=== PATIENT | male | born 1975 | race Caucasian/White ===

== ENCOUNTER 2018-07-01 11:43 | Outpatient (CLI) | payer OTHER, SELFPAY ==
[2018-07-01 13:24] LABS: Absolute Basophil Count 0.01 k/cumm (0.0-0.2); Absolute Eosinophil Count 0.04 k/cumm (0.0-0.7); Absolute Lymphocyte Count 1.56 k/cumm (1.2-3.4); Absolute Monocyte Count 0.38 k/cumm (0.11-0.7); Basophils % 0.2; Eosinophils % 0.7; HCT 47.3 % (40.0-50.0); HGB 16.2 g/dL (13.5-17.5); Lymphocytes % 28.9; Mean Corp. HGB Concentration 34.2 g/dL (32.0-36.0); Mean Corpuscular Hemoglobin 29.2 pg (27.0-33.0); Mean Corpuscular Volume 85.4 fL (80-95); Mean Platelet Volume 9.9 fL (8.0-11.0); Monocytes % 7.1; Neutrophils % 63.1; Platelet Count 246 x1000/uL (130-400); RBC 5.54 m/cumm (4.50-6.00); RBC Distribution Width 13.1 % (11.8-14.1); White Blood Cell Count 5.39 k/cumm (4.4-10.8)
[2018-07-01 13:38] LABS: ALT 32 U/L (12-78); AST 14 U/L (15-37); Albumin 4.1 g/dL (3.4-5.0); Alkaline Phosphatase 52 U/L (46-116); Anion Gap 5.6 mmol/L (3-11); BUN 20 mg/dL (7-18); Bilirubin, Total 0.5 mg/dL (0.2-1.0); CO2 28.4 mmol/L (21.0-32.0); CREATININE 1.03 mg/dL (0.70-1.30); Calcium 9.3 mg/dL (8.5-10.1); Chloride 102 mmol/L (98-107); Cholesterol 228 mg/dL (50-200); Glucose 87 mg/dL (70-100); HDL Cholesterol 60 mg/dL (40-60); LDL CHOLESTEROL 143 mg/dL (<100); Potassium 4.6 mmol/L (3.5-5.1); Sodium 136 mmol/L (136-145); Triglyceride 149 mg/dL (30-150)
== END 2018-07-01 12:03 ==
PROVIDERS: PCP Family Medicine; Visit Provider Family Medicine
DX: Z00.00 Encounter for general adult medical examination without abnormal findings (principal); K21.9 Gastro-esophageal reflux disease without esophagitis; Z80.9 Family history of malignant neoplasm, unspecified
CPT/HCPCS: 36415; 80053; 80061; 83721; 85025

== ENCOUNTER 2018-10-21 06:01 | Day surgery (SDC) | payer OTHER, SELFPAY ==
[2018-10-21 06:25] VITALS: BP 116/73; PULSE 72; RESP 16; TEMP 35.1; O2SAT 97
[2018-10-21] MEDS: Lactated Ringers 1,000 ML 80 ML IV (06:43)
--- NOTE | 2018-10-21 07:32 | STOM_PTH ---
PATIENT: Miguelito Dietrich LOC: [facility] U#:[id number] AGE/SX: 43/M ROOM: RE10/21/[address]: Mili Lemos : 1975 BED: DIS: 10/21/2018 SPEC #: [id number] RECD: 10/21/18 12:32 STATUS: CITLALI RE #: [id number] MIRA: 10/21/18 07:[address]: Mili Lemos DEPT: Surgical Specimen RECD BY: [place] ENTERED: 10/21/18 12:40 SP TYPE: STOMACH OTHR DR: Gregg Valencia MD Tissues: 1 - BIOPSY BOWEL 2 - STOMACH BIOPSY 3 - STOMACH BIOPSY 4 - ESOPHAGUS BIOPSY 5 - ESOPHAGUS BIOPSY Procedures: GROSS AND MICRO LEVEL 4 Comments: [id number]
--- NOTE | 2018-10-21 07:42 | ENDO_ITS ---
Date of service: 10/21/18 Time of Service: 07:40 Endoscopy Report DATE OF PROCEDURE: 10/21/18 PRE-OP DIAGNOSIS: Medication refractorty gerd POST-OP DIAGNOSIS: other (mild gastritis/esophagitis ) PROCEDURE: egd w/ Bx SURGEON: Mili Lemos ANESTHESIA: GETA ESTIMATED BLOOD LOSS: 2 PATHOLOGY: other COMPLICATIONS: None DISPOSITION: same day PROCEDURE DESCRIPTION: After informed consent was obtained the patient was take to the procedure room and placed in a supine position. Monitors were applied and a time out was done. The patients name, date of , procedure type, allergies to medications and metal in their body was reviewed. A bite block was placed and the patient was sedated. Once sedated and comfortable the gastroscope was advanced through the oropharynx which was grossly normal into the esophagus. The proximal and mid-esophagus were nl. In the distal esophagus there was mild esophagitis noted. The scope was advanced into the stomach and through the pylorus into the 3rd portion of the duodenum. The duodenum was noted to be nl. Biopsies were done . The scope was retracted back into the stomach and biopsies were done to rule out H. pylori. There were no ulcers. There is some mild gastritis in striped fashion in the antrum. The scope was retroflexed. The cardia and fundus were noted to be normal. There no a hiatal hernia noted. The scope was retracted back into the esophagus and biopsies were done of the GE junction to rule out Patino's. The Z line was regular. The GE junction was at 38 cm. The scope was removed and the patient was woken up and taken back to [facility] in stable condition. Follow up: prn see d/c instruction
--- NOTE | 2018-10-21 07:42 | W.PM.DSUDISC ---
Discharge Plan Disposition Patient Disposition: HOME Condition: Good Discharge Details Reason For Visit: EGD Attending Provider: Mili Lemos Primary Care Provider: Gregg Valencia Home Meds and New Rx's Prescriptions: New Dexilant 60 mg capsule,biphase delayed releas 60 mg PO DAILY Qty: 30 RF: 11 sucralfate [Carafate] 1 gram tablet 1 gm PO QACHS Qty: 30 RF: 5 Discontinued esomeprazole magnesium [Nexium] 40 mg capsule,delayed release(DR/EC) 40 mg PO DAILY Qty: 30 RF: 5 Discharge Instructions Additional Instructions: Findings:mild esophagitis/gastritis change Rx to Dexilant and add in carfate for breakthrough s/s. Continue with lifestyle modifications: no alcohol, tobacco products, Aspirin or NSAID's (ibuprofen, Motrin, Naprosyn, aleve, etc), soda pop/any carbonated beverages, caffeine (including tea & chocolate), and acidic foods, (tomatoes, citrus, onions, peppermints) spicy or fried/fatty foods. Do not lie down for 30 minutes after eating, and do not eat 2 hours prior to bedtime. Avoid wearing tight fitting clothing/ belts Follow up: will send a ltter w/ Bx results in 2-3 wks. if Dexilant isn't helping- call office Please call if you develop: fevers >101.5 Nausea or Vomiting Abdominal pain that is not transient DAY SURGERY UNIT POST COLONOSCOPY INSTRUCTIONS 1. Because there will be medication in your system for the next 24 hours, you may feel a little sleepy. Your coordination will be affected. Therefore: a. Do not drive or operate dangerous equipment for 24 hours. b. Do not drink alcohol beverages for 24 hours (not even beer). c. Plan to go home and rest for the day. 2. Generally there are no restrictions on your activity after a day or so has gone by, but you may feel a bit fatigued for a few days. 3 After you arrive home you may have a light meal and return to a normal diet as you can tolerate it without feeling sick to your stomach. 4. After surgery, you may feel pain or discomfort. This should be only transient, but if it persists please contact your doctor. 5. If there are any questions regarding the findings of your procedure, please feel free to contact your doctor. 6. If you are unable to contact your doctor with a problem, contact the hospital at [phone]. 7. Continue all your regular medications unless directed otherwise. I understand the above instructions and have no questions. Signature of Patient or Responsible Adult Escort Date/Time Name of Responsible Adult Escort Signature of Nurse Date/Time Stand Alone Forms: DSU Post BETTE Hdz, Anil Gamble (DSU) Activity:: no heavy lifting or strenous activity today Diet:: small light meals x 24 hrs Discharge Orders Discharge Orders: Discharge Order (Routine); Ordered 10/21/18 Ordered By: Mili Lemos Discharge Data Discharge Date/Time-TO BE ENTERED AT DEPARTURE: 10/21/18 09:09 Discharge Comment: DC'D HOME WITH SISTERPARAM. DS: Diagnosis Discharge Diagnosis (1) GERD (gastroesophageal reflux disease): Status: Chronic
[2018-10-21 08:45] VITALS: BP 116/78; PULSE 64; RESP 18; TEMP 35.4; O2SAT 100
== END 2018-10-21 09:09 | disposition home or self-care (01) ==
PROVIDERS: PCP Family Medicine; Visit Provider Surgery
PROC: 0DJ68ZZ Inspection of Stomach, Via Natural or Artificial Opening Endoscopic (ICD-10-PCS; CPT 43235; principal; 2018-10-21 07:30)
DX: K21.0 Gastro-esophageal reflux disease with esophagitis (principal); K29.60 Other gastritis without bleeding; K29.80 Duodenitis without bleeding
CPT/HCPCS: 43239; 88305

== ENCOUNTER 2019-07-20 11:38 | Outpatient (CLI) | payer BC, SELFPAY ==
[2019-07-20 13:09] LABS: Abs Immature Grans 0.01 k/cumm (0.0-0.09); Absolute Basophil Count 0.02 k/cumm (0.0-0.2); Absolute Eosinophil Count 0.03 k/cumm (0.0-0.7); Absolute Lymphocyte Count 1.62 k/cumm (1.2-3.4); Absolute Monocyte Count 0.42 k/cumm (0.11-0.7); Absolute Neutrophil Count 3.42 k/cumm (1.2-6.7); Basophils % 0.4; Eosinophils % 0.5; HCT 46.5 % (40.0-50.0); HGB 15.7 g/dL (13.5-17.5); Immature Grans % 0.2 %; Lymphocytes % 29.3; Mean Corp. HGB Concentration 33.8 g/dL (32.0-36.0); Mean Corpuscular Hemoglobin 29.5 pg (27.0-33.0); Mean Corpuscular Volume 87.2 fL (80-95); Mean Platelet Volume 9.6 fL (8.0-11.0); Monocytes % 7.6; Platelet Count 271 x1000/uL (130-400); RBC 5.33 m/cumm (4.50-6.00); RBC Distribution Width 13.7 % (11.8-14.1); White Blood Cell Count 5.52 k/cumm (4.4-10.8)
[2019-07-20 13:43] LABS: ALT 40 U/L (16-63); AST 22 U/L (15-37); Albumin 4.1 g/dL (3.4-5.0); Alkaline Phosphatase 50 U/L (46-116); Anion Gap 9.9 mmol/L (3-11); BUN 20 mg/dL (7-18); Bilirubin, Total 0.6 mg/dL (0.2-1.0); CO2 29.1 mmol/L (21.0-32.0); CREATININE 1.01 mg/dL (0.70-1.30); Calcium 9.1 mg/dL (8.5-10.1); Calculated LDL 153 mg/dL (<100); Chloride 103 mmol/L (98-107); Cholesterol 256 mg/dL (<200); Glucose 95 mg/dL (74-106); HDL Cholesterol 73 mg/dL (40-60); Potassium 4.6 mmol/L (3.5-5.1); Sodium 142 mmol/L (136-145); Total Protein 6.8 g/dL (6.4-8.2); Triglyceride 152 mg/dL (<150)
[2019-07-21 10:29] LABS: PSA, Screening 1.2 ng/mL (0.0-2.5)
== END 2019-07-20 11:58 ==
PROVIDERS: PCP Family Medicine; Visit Provider Family Medicine
DX: Z00.00 Encounter for general adult medical examination without abnormal findings (principal); Z13.220 Encounter for screening for lipoid disorders; Z12.5 Encounter for screening for malignant neoplasm of prostate; Z80.42 Family history of malignant neoplasm of prostate
CPT/HCPCS: 36415; 80053; 80061; 84153; 85025

== ENCOUNTER 2020-03-11 02:21 | Outpatient (CLI) | payer BC, SELFPAY ==
[2020-03-14 09:30] LABS: Patient Race White; SARS-CoV-2 RNA Undetected (Undetected); SARS-CoV-2 Specimen Source Nasopharynx
== END 2020-03-11 02:41 ==
PROVIDERS: PCP Family Medicine; Visit Provider Family Medicine
DX: Z11.59 Encounter for screening for other viral diseases (principal)
CPT/HCPCS: U0003

== ENCOUNTER 2020-09-12 03:22 | Outpatient (CLI) | payer BC, SELFPAY ==
[2020-09-13 14:16] LABS: COVID-19 RT-PCR UVMMC Result Negative (Negative)
== END 2020-09-12 03:23 | disposition home or self-care (01) ==
LOC: LBO 03:22
PROVIDERS: PCP Family Medicine; Visit Provider Nurse Practitioner
DX: Z20.822 Contact with and (suspected) exposure to COVID-19 (principal)
CPT/HCPCS: U0003

== ENCOUNTER 2023-05-08 10:20 | Outpatient (REF) | payer BC, SELFPAY ==
[2023-05-08 21:42] LABS: ALT 43 U/L (16-63); AST 29 U/L (15-37); Albumin 4.1 g/dL (3.4-5.0); Alkaline Phosphatase 64 U/L (46-116); Anion Gap 12.1 mmol/L (3-11); BUN 18 mg/dL (7-18); Bilirubin, Total 0.7 mg/dL (0.2-1.0); CO2 24.9 mmol/L (21.0-32.0); Calcium 9.3 mg/dL (8.5-10.1); Chloride 106 mmol/L (98-107); Estimated GFR 93.42 (mL/min/1.73m2); Glucose 127 mg/dL (74-106); NT-proBNP 227 pg/mL (<300); Sodium 143 mmol/L (136-145); Total Protein 7.1 g/dL (6.4-8.2); Uric Acid 6.3 mg/dL (3.5-7.2)
== END 2023-05-20 10:18 | disposition home or self-care (01) ==
LOC: LBN 10:20
PROVIDERS: PCP Family Medicine; Visit Provider Nurse Practitioner Family
DX: M25.571 Pain in right ankle and joints of right foot (principal)
CPT/HCPCS: 80053; 83880; 84550

== ENCOUNTER → 2023-05-08 14:50 | Outpatient (CLI) | payer BC, SELFPAY ==
--- NOTE | 2023-05-08 13:45 | DI.RAD_ITS ---
Exam(s) XR CHEST 2V PA LATERAL EXAM: XR CHEST 2V PA LATERAL CLINICAL HISTORY: cough, edema, hx cardiac murmur, Z86.79. TECHNIQUE: 2D digital imaging was performed. COMPARISON: No exams were available for comparison FINDINGS: 2 views: Heart size is normal. There is prominence of the left pulmonary artery segment. Also slight promine nce of the right pulmonary artery segment. No confluent lung infiltrates. No pleural effusions. No pneumothorax. No pulmonary edema. No fractures. IMPRESSION: Bilateral hilar findings as above. Prominence of the pulmonary artery segments. There are no prior studies for comparison in our PACS. If clinically indicated follow-up CT scan can be performed. DATA REPOSITORY: RADIATION DOSE DELIVERED:
== END ==
PROVIDERS: PCP Family Medicine; Visit Provider Nurse Practitioner Family
DX: Z86.79 Personal history of other diseases of the circulatory system (principal); R59.0 Localized enlarged lymph nodes; R05.9 Cough, unspecified
CPT/HCPCS: 71046

== ENCOUNTER → 2023-06-04 00:42 | Outpatient (CLI) | payer BC, SELFPAY ==
--- NOTE | 2023-06-04 06:45 | DI.US_ITS ---
APPROVED REPORT EXAM: Comprehensive 2D, Doppler, and color-flow Echocardiogram Patient Location: Out-Patient Global Risk Management Director: Manny Santiago RDCS (AE) Other Information Study Quality: Good Conclusion 1. Right atrium and ventricle are moderately dilated, left atrium mildly dilated, LV normal size. 2. PFO(versus ASD) with left to right shunting by color doppler. 3. Normal RV systolic function 4. Mild pulmonary hypertension 5. Normal LV systolic function. 6. Anatomically normal valves. Moderate MR, mild to moderate TR. 7. No pericardial effusion.i Wall motion Left Ventricle Left ventricular cavity is small. The left ventricular systolic function is normal. The left ventricu lar ejection fraction is within the normal range. There is normal left ventricular wall thickness. Fl attened septum consistent with right ventricular volume overload. Regional wall motion is normal. The re is no ventricular septal defect visualized. LVEF is 65%. Right Ventricle Right ventricle is moderately dilated. Right ventricular systolic function is grossly normal. The RVS P is 38.4 mmHg. Atria Left atrium is mildly dilated. Right atrium is moderately dilated. Possible PFO is noted. Doppler sug gests left to right interatrial shunt. Aortic Valve The aortic valve is normal in structure. Aortic valve is trileaflet. There is no aortic valvular sten osis. No aortic regurgitation is present. Mitral Valve The mitral valve is normal in structure. No evidence of mitral valve stenosis. Moderate mitral regurg itation. Tricuspid Valve The tricuspid valve is normal in structure. There is no tricuspid valve stenosis. Mild to moderate tr icuspid regurgitation. Pulmonic Valve The pulmonary valve is normal in structure. There is no pulmonic valvular stenosis. Trace pulmonic re gurgitation. Great Vessels The aortic root is normal in size. The ascending aorta is normal in size. Aortic arch is not well vis ualized. IVC is normal in size and collapses >50% with inspiration. Pericardium There is no pericardial effusion. 2D Dimensions IVSD d PLAX 0.74 cm M: 0.6-1.2 Ao Root d 2.62 cm M: 3.1 - 3.7 LVPW d PLAX 0.74 cm M: 0.6 - 1.2 Ao Asc Diam d 2.92 cm M: 2.6 - 3.4 LVID d PLAX 3.95 cm M: 4.2 - 5.8 LVDs 2.56 cm M: 2.5 - 4.0 LV EF Teichholz 65.1 % FS 35.13 % LV EDV (Teich) 67.8 mL LV ESV (Teich) 23.7 mL Stroke Vol Index (Teich) 23.46 M-Mode TAPSE 2.39 cm (M/F) >1.7 Auto EF LV EDV A4C 72.7 mL LV EDV A2C 120.2 mL LV EDV BP 93.5 mL LV ESV A4C 27.1 mL LV ESV A2C 42.9 mL LV ESV BP 34.7 mL LVEF(%) A4C 62.7 % LVEF(%) A2C 64.4 % LVEF(%) BP 63.0 % LV SV A4C 45.5 ml LV SV A2C 77.4 ml LV SV BP 58.9 ml LV CO A4C 3.4 L/min LV CO A2C 6.0 L/min LV CO BP 4.7 L/min HR A4C 75.32 BPM HR A2C 78.06 BPM LV EDV Index (BP) LA Volume LA Length A4C 5.0 cm LA Length A2C 5.2 cm LA Area A4C s 16.67 cm2 LA Area A2C s 13.48 cm2 LA Vol A4C A-L 47.33 mL LA Vol A2C A-L 29.55 mL LA Vol Biplane A-L 38.3 mL LA Vol/BSA A4C A-L LA Vol/BSA A2C A-L LA Vol/BSA BP A-L 20.4 mL/m2 LA Vol A4C MOD 44.3 mL LA Vol A2C MOD 28.6 mL LA Vol BP MOD 36.3 mL RA Volume RA Area A4C 19.8 cm2 RA ESV A4C (A-L) 70.9mL RA Vol/BSA A4C A-L RA Length A4C 4.7 cm RA ESV A4C (MOD) 67.7mL LV Diastology MV E' medial 0.164 (>0.07 m/s) MV E Vmax 0.83 (0.4-1.3 m/s) MV E/E' MED 5.05 (<14) MV A Vmax 0.80 (0.4-1.3 m/s) MV E' lateral 0.208 (>0.1 m/s) E/A Ratio 1.0 MV E/E' LAT 4.00 (<14) MV E' Average 0.186 m/s MV E/E'(average) 4.46 Aortic Valve AoV Vmax 1.20 m/s LVOT Vmax 1.01 m/s AoV Peak Grad 5.8 mmHg LVOT Peak Grad 4.0 mmHg AoV Area (Vmax) 2.25 cm2 LVOT VTI 0.195 m AoV VTI 0.249 m LVOT Mean Grad 2.2 mmHg AoV Mean Abraham. 0.93 m/s LVOT SV 52.49 mL AoV Mean Grad 3.8 mmHg LVOT Diam s 1.85 cm AoV Area (VTI) 2.11 cm2 Velocity Ratio 0.84 Mitral Valve MV DT 232 (160-240 msec) Pulmonary Valve PV Vmax 1.60 (0.5-1.5 m/s) RVOT Vmax 1.06 m/s PV Peak Grad 10.3 mmHg RVOT Peak Gr. 4.5 mmHg PV Mean Abraham 1.05 m/s RVOT VTI 0.241 m PV Mean Grad 5.0 mmHg RVOT Mean Gr. 2.3 mmHg Tricuspid Valve RA Pressure 3.00 mmHg TR Vmax 2.97 m/s TR Peak Grad 35.3 mmHg RVSP (TR) 38.4 mmHg
--- NOTE | 2023-06-04 07:59 | DI.RAD_ITS ---
Exam(s) XR ANKLE RT COMPLETE EXAM: XR ANKLE RT COMPLETE CLINICAL HISTORY: recurrent swelling and pain, EDEMA, M25.571, R60.9. TECHNIQUE: 2D digital imaging was performed of the right ankle. Three images were obtained. AP, la teral and oblique views were obtained. COMPARISON: No exams were available for comparison FINDINGS: BONES: No acute fracture is present. No bony destructive lesion is seen. JOINTS: The ankle mortise is normally aligned. SOFT TISSUE: Normal. IMPRESSION: Unremarkable radiographs of the right ankle. DATA REPOSITORY: RADIATION DOSE DELIVERED:
== END ==
PROVIDERS: PCP Family Medicine; Visit Provider Nurse Practitioner Family
DX: Z86.79 Personal history of other diseases of the circulatory system (principal); M25.571 Pain in right ankle and joints of right foot; R60.9 Edema, unspecified
CPT/HCPCS: 73610; 93306

== ENCOUNTER 2023-06-04 10:04 | Outpatient (CLI) | payer BC, SELFPAY ==
[2023-06-04 09:03] LABS: ESR 3 mm/hr (0-15)
[2023-06-04 09:15] LABS: Uric Acid 6.2 mg/dL (3.5-7.2)
[2023-06-04 19:36] LABS: Rheumatoid Factor <8.6 IU/mL (<12.0)
[2023-06-05 10:07] LABS: Lyme Ab w Rflx to Lyme Confirm Negative (Negative)
[2023-06-05 12:18] LABS: ANA Interpretation Positive (Negative)
[2023-06-07 00:30] LABS: Anaplasma phagocytophilum Negative (Negative); B. miyamotoi PCR Negative (Negative); Babesia divergens/MO-1 Negative (Negative); Babesia duncani Negative (Negative); Babesia microti Negative (Negative); Ehrlichia chaffeensis Negative (Negative); Ehrlichia ewingii/canis Negative (Negative); Ehrlichia muris eauclairensis Negative (Negative)
== END 2023-06-04 10:05 | disposition home or self-care (01) ==
LOC: LBO 10:05
PROVIDERS: PCP Family Medicine; Visit Provider Nurse Practitioner Family
DX: M25.571 Pain in right ankle and joints of right foot (principal); R60.9 Edema, unspecified
CPT/HCPCS: 36415; 85652; 87798; 84550; 86038; 86431; 86618

== ENCOUNTER → 2023-06-14 01:44 | Outpatient (CLI) | payer BC, SELFPAY ==
--- NOTE | 2023-06-14 07:00 | DI.CT_ITS ---
Exam(s) CT CHEST PE CTA EXAM: CT CHEST PE CTA CLINICAL HISTORY: swelling, cough, pulm htn,pfo. TECHNIQUE: Imaging Protocol: Axial CT angiography was performed with multi-slice acquisition and mu lti-planar and/or 3D reconstructions. CONTRAST MATERIAL: Intravenous: Omnipaque 350 contrast volume:100 mL COMPARISON: CR XR CHEST 2V PA LATERAL from 05/08/2023 FINDINGS: Tracheobronchial tree: Patent where visualized. Pulmonary parenchyma: No consolidation or dominant measurable mass. No architectural distortion. Pulmonary Arteries: No evidence of filling defect to suggest pulmonary emboli. Mediastinum and Lyndsey: No dominant adenopathy or fluid collection. The esophagus is unremarkable. Visualized thyroid gland: Unremarkable. Pleura: No effusion or pneumothorax. Heart: The heart is not dilated. No coronary artery calcifications are seen. No pericardial effusion. Aorta: Thoracic aorta non-dilated. No evidence of dissection. 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 Upper abdomen: Unremarkable. Soft tissues: Unremarkable. Bones: Within normal limits for the patient's age. IMPRESSION: No evidence of pulmonary embolism, thoracic aortic dissection or aneurysm. RADIATION DOSE DELIVERED: 476.94mGy.cm Total DLP DATA REPOSITORY: All CT scans at this facility are submitted to the National Radiology Data Registry (NRDR) Dose Index Registry (DIR) with the [employer] (ACR). RADIATION OPTIMIZATION: All CT scans at this facility use at least one of these dose optimization te chniques: automated exposure control; mA and/or kV adjustment per patient size (includes targeted exa ms where dose is matched to clinical indication); or iterative reconstruction.
--- NOTE | 2023-06-14 07:19 | DI.US_ITS ---
Exam(s) US EXTREMITY VENOUS BI EXAM: US EXTREMITY VENOUS BI CLINICAL HISTORY: swelling, pulm htn.M79.89,[id number]. TECHNIQUE: Bilateral lower extremity venous ultrasound performed using grayscale, color-flow, and sp ectral Doppler analysis. COMPARISON: No exams were available for comparison FINDINGS: The right common femoral, femoral and popliteal veins demonstrate normal compressibility, augmentatio n, and color Doppler. The posterior tibial and peroneal veins are patent. The saphenofemoral junctio n is unremarkable. There is no evidence of a García's cyst. The soft tissues are unremarkable. The left common femoral, femoral and popliteal veins demonstrate normal compressibility, augmentation , and color Doppler. The posterior tibial and peroneal veins are patent. The saphenofemoral junction is unremarkable. There is no evidence of a García's cyst. The soft tissues are unremarkable. IMPRESSION: 1. No evidence of a right lower extremity DVT. 2. No evidence of a left lower extremity DVT. DATA REPOSITORY:
[2023-06-14 09:18] LABS: CREATININE 1.1 mg/dL (0.70-1.30); Estimated GFR 83.32 (mL/min/1.73m2)
[2023-06-14] MEDS: Omnipaque 350 MG/ML 100 ML BTL IJ (09:51)
[2023-06-14] MEDS: Normal Saline - Diluent 50 ML VIAL IJ (09:52)
[2023-06-14] MEDS: Normal Saline Flush 10 ML SYR IVP (09:52)
== END ==
PROVIDERS: PCP Family Medicine; Visit Provider Nurse Practitioner Family
DX: R60.9 Edema, unspecified (principal); I27.20 Pulmonary hypertension, unspecified; Q21.12 Patent foramen ovale; R06.00 Dyspnea, unspecified
CPT/HCPCS: 71275; 82565; 93970; J3490

== ENCOUNTER 2023-09-03 14:27 | Outpatient (CLI) | payer BC, SELFPAY ==
[2023-09-03 11:06] LABS: HCT 46.8 % (40.0-50.0); HGB 15.9 g/dL (13.5-17.5); MCH 28.5 pg (27.0-33.0); MCV 84 fL (80-95); MPV 9.3 fL (8.0-11.0); Platelet Count 227 10^3/uL (130-400); RBC 5.58 10^6/uL (4.36-5.78); RDW 13.2 % (11.8-14.1); RDW-SD 40.7 fL; WBC 5.38 10^3/uL (4.4-10.8)
[2023-09-03 11:14] LABS: Prothrombin Time 10.4 sec (9.1-11.1)
[2023-09-03 11:42] LABS: Anion Gap 11.8 mmol/L (3-11); BUN 19 mg/dL (7-18); CO2 27.2 mmol/L (21.0-32.0); Calcium 9.1 mg/dL (8.5-10.1); Chloride 105 mmol/L (98-107); Estimated GFR 93.42 (mL/min/1.73m2); Glucose 104 mg/dL (74-106); Potassium 4.3 mmol/L (3.5-5.1); Sodium 144 mmol/L (136-145)
== END 2023-09-03 14:28 | disposition home or self-care (01) ==
LOC: LBO 09-12 14:28
PROVIDERS: PCP Family Medicine; Visit Provider Nurse Practitioner Family
DX: Z01.818 Encounter for other preprocedural examination (principal); Q21.12 Patent foramen ovale
CPT/HCPCS: 36415; 80048; 85027; 83735; 85610

== ENCOUNTER 2023-11-01 08:17 | Outpatient (RCR) | payer BC, SELFPAY | END 2023-11-01 23:59 | disposition home or self-care (01) | LOC: CR 08:17 | PROVIDERS: PCP Family Medicine; Visit Provider Internal Medicine Cardiovascular Disease | DX: Z95.2 Presence of prosthetic heart valve (principal); Z51.89 Encounter for other specified aftercare | CPT/HCPCS: S9472 ==

== ENCOUNTER → 2023-11-15 00:32 | Outpatient (CLI) | payer BC, SELFPAY ==
--- NOTE | 2023-11-15 07:00 | DI.MRI_ITS ---
Exam(s) MR LOWER JOINT RT WO EXAM: MR LOWER JOINT RT WO CLINICAL HISTORY: chronic right medial ankle pain,M25.571 TECHNIQUE: Multiplanar multisequence MRI was performed without intravenous contrast. COMPARISON: CR XR ANKLE RT COMPLETE from 06/04/2023 FINDINGS: SKIN: No evidence of ulcer nor subcutaneous tract. BONES/JOINTS: There is intraosseous edema in the medial malleolus. No obvious fracture lines evident at this level. Bone edema is not seen elsewhere in the distal tibia nor within the distal fibula an d lateral malleolus nor in the talar dome. No joint effusion is present. The talar dome appears unre markable. The ankle mortise is maintained. There is no evidence of para-articular ganglion.There is no evidence of osseous tarsal coalition. No evidence of degenerative changes in the articulations of the midfoot and visualize tarsometatarsal joints. LIGAMENTS: The anterior and posterior tibiofibular and calcaneofibular ligaments are intact. The ante rior and posterior talofibular ligaments are intact. On the medial aspect of the ankle there is no ob vious abnormality of the deltoid ligament. The calcaneal navicular spring ligament appears intact SINUS TARSI: There is no loss of the normal fat signal in this space. Interosseous ligament is intac t. There is no evidence of sinus tarsi ganglion cyst. ANTEROLATERAL GUTTER:There is no abnormal signal/abnormal tissue in this space. MUSCULOTENDINOUS STRUCTURES: Achilles tendon: Unremarkable. No evidence of tear nor tendinitis/tendinosis. Plantar fascia: Unremarkable. No evidence of tear, abnormal thickening, nor abnormal nodularity. Anterior Extensor tendons: Unremarkable. Medial Tendons: Posterior Tibialis: Unremarkable. No tear or tenosynovitis evident. Flexor Digitorum longus: Unremarkable. No tear or tenosynovitis evident. Flexor Hallicus longus: Unremarkable. No tear or tenosynovitis evident. Lateral Tendons: Peroneus longus: Appears unremarkable on the lateral ossicular the ankle. No tear nor tenosynovitis evident at this level. However, on the undersurface of the 5 just proximal to its insertion on the u ndersurface of the great toe metatarsal and medial cuneiform it exhibits some cystic change but witho ut complete tear. There is no tenosynovitis. Peroneus brevis:Unremarkable. No tear nor tenosynovitis evident. SOFT TISSUES: Unremarkable. OTHER FINDINGS: None. IMPRESSION: 1. There is nonspecific intraosseous edema in medial malleolus without overlying soft tissue swelling . There does not appear to be obvious significant degenerative change in the tibiotalar joint at thi s level.. Also no abnormality on the medial aspect of the talar dome. Minimal degenerative changes. The adjacent tibialis posterior and flexor digitorum tendons appear unremarkable without evidence o f tears nor significant tenosynovitis. 2. Some cystic change in the distal most aspect of the prone is longus tendon on the undersurface of the foot adjacent to the attachment at the inferior aspect of the great toe metatarsal, this measurin g 5 x 4 mm. However, there does not appear to be a complete tear of this tendon and there is no teno synovitis. DATA REPOSITORY:
== END ==
PROVIDERS: PCP Family Medicine; Visit Provider Family Medicine
DX: M25.571 Pain in right ankle and joints of right foot (principal)
CPT/HCPCS: 73721

== ENCOUNTER 2023-11-29 08:00 | Outpatient (RCR) | payer BC, SELFPAY | END 2023-12-01 23:59 | disposition home or self-care (01) | LOC: CR 08:00 | PROVIDERS: PCP Family Medicine; Visit Provider Internal Medicine Cardiovascular Disease | DX: Q21.12 Patent foramen ovale (principal); Z87.74 Personal history of (corrected) congenital malformations of heart and circulatory system | CPT/HCPCS: S9472 ==

== ENCOUNTER 2023-12-11 08:00 | Outpatient (RCR) | payer BC, SELFPAY | END 2024-01-01 23:59 | disposition home or self-care (01) | LOC: CR 08:00 | PROVIDERS: PCP Family Medicine; Visit Provider Internal Medicine Cardiovascular Disease | DX: Z95.2 Presence of prosthetic heart valve (principal) | CPT/HCPCS: S9472 ==

== ENCOUNTER 2024-09-04 10:09 | Outpatient (CLI) | payer BC, SELFPAY ==
[2024-09-04 10:50] LABS: Calculated LDL 205 mg/dL (<100); Cholesterol 302 mg/dL (<200); HDL Cholesterol 69 mg/dL (>or=40); Triglyceride 143 mg/dL (<150)
[2024-09-04 19:22] LABS: PSA, Screening 1.2 ng/mL (<=2.5)
[2024-09-04 19:57] LABS: HIV-1/2 Ag & Ab Screen Negative (Negative)
[2024-09-04 20:00] LABS: Hepatitis C Ab w Rflx HCV PCR Negative (Negative)
== END 2024-09-04 10:10 | disposition home or self-care (01) ==
LOC: LBO 10:10
PROVIDERS: PCP Family Medicine; Visit Provider Family Medicine
DX: Z13.6 Encounter for screening for cardiovascular disorders (principal); Z11.59 Encounter for screening for other viral diseases; Z11.4 Encounter for screening for human immunodeficiency virus [HIV]; Z12.5 Encounter for screening for malignant neoplasm of prostate; R25.1 Tremor, unspecified
CPT/HCPCS: 36415; 80061; 84153; 86803; 87389